=== PATIENT | male | born 1960 | race Caucasian/White ===

== ENCOUNTER → 2018-02-22 09:17 | Outpatient (CLI) | payer OTHER, SELFPAY ==
--- NOTE | 2018-02-22 09:20 | BD_ITS ---
STUDY: DUAL ENERGY X-RAY ABSORPTIOMETRY / DXA REASON FOR EXAM: Male, 57 years old. Long-term steroid use. Renal transplant for 25 years. TECHNIQUE: Bone Mineral Density (BMD) measurements of lumbar spine and bilateral hips were obtained. COMPARISON: None. FINDINGS: Lumbar Spine (L1-L4): g/cm2 (1.025) / T-score (-1.5) / Z-score (1.1) Findings are suggestive of osteopenia with a moderate fracture risk. Left Femur Total: g/cm2 (0.912) / T-score (-1.3) / Z-score (-0.8) Left Femoral Neck: g/cm2 (0.868) / T-score (-1.6) / Z-score (-0.6) Right Femur Total: g/cm2 (0.979) / T-score (-0.8) / Z-score (line is 0.4) Right Femoral Neck: g/cm2 (0.941) / T-score (-1.0) / Z-score (-0.1) BD/Dexa Bone Density Study IMPRESSION: The patient is considered osteopenic as outlined below according to World [employer] Organization (WHO) criteria with a moderate fracture risk. Reference Information: The T-score is the number of standard deviations above or below the standard which is normal for young adults at their peak bone mineral density. The World Health Organization (WHO) interprets the T-scores as follows: Above -1 Normal bone density Between -1 and -2.5 Osteopenia Equal to / or below -2.5 Osteoporosis As a practical clinical guideline, osteopenia may be graded as follows: Mild -1 through -1.5 Moderate -1.6 through -2.0 Severe -2.1 through -2.4 The Z-score is the number of standard deviations above or below age-matched controls. A Z-score of less than -1.5 would be considered abnormal. References: 1. NIH Osteoporosis and Related Bone Diseases http://www.osteo.org 2. International Society for Clinical Densitometry http://www.iscd.org 3. National Osteoporosis Foundation http://www.nof.org Electronically Signed: Gavin Boss DO at 8:57 EDT Tel [phone], Service support ,
== END ==
LOC: OPBD 09:18
PROVIDERS: Family Provider Nurse Practitioner Family; PCP Nurse Practitioner Family; Visit Provider Nurse Practitioner Family
DX: M41.80 Other forms of scoliosis, site unspecified (principal); Z94.0 Kidney transplant status; Z79.52 Long term (current) use of systemic steroids
CPT/HCPCS: 77080

== ENCOUNTER → 2022-02-23 | Outpatient (CLI) | payer OTHER, SELFPAY ==
[2022-02-23 08:25] LABS: Hematocrit 41.8 % (40-54); Hemoglobin 13.8 g/dL (13.0-16.5); Mean Corpuscular Hgb 30.1 pg (27.0-32.0); Mean Corpuscular Volume 91.3 fL (80-94); Mean Platelet Vol. 10.8 fl (6.2-12.0); POSITIVE MORPHOLOGY YES; Platelet Count 197 K/mm3 (150-450); RBC Distribution Width CV 13.2 % (11.6-14.6); RBC Distribution Width SD 44.4 fl (35.1-43.9); Red Blood Count 4.58 M/mm3 (4.6-6.2); White Blood Count 7.7 K/mm3 (4.4-11.0)
[2022-02-23 08:54] LABS: Scan Indicated on CBC? Y/N YES- FLAGS NOTED
[2022-02-23 09:09] LABS: AST(SGOT) 20 U/L (15-37); Alanine Aminotransfer ALT/SGPT 21 U/L (16-61); Albumin, Serum 3.6 g/dL (3.2-5.0); Alkaline Phosphatase 65 U/L (45-117); Anion Gap 6 (5-15); BUN 21 mg/dL (7-18); BUN/Creat Ratio 12.1 RATIO (10-20); Calcium,Total 8.8 mg/dL (8.5-10.1); Chloride 107 mmol/L (98-107); Cholesterol 180 mg/dL (200); Creatinine, Serum 1.73 mg/dL (0.70-1.30); EST Glomerular Filtration Rate 43 mL/min (>60); Est Glom Filt Rate - Afr Amer 51 mL/min (>60); Globulin 3.5 g/dL (2.2-4.2); Glucose 119 mg/dL (74-106); High Density Lipoprotein 69 mg/dL; PSA,Total - Annual Screen 2.51 ng/mL (0.00-4.00); Potassium 4.4 mmol/L (3.5-5.1); Protein, Total 7.1 g/dL (6.4-8.2); Sodium Level 140 mmol/L (136-145); Triglycerides 63 mg/dL; Very Low Density Lipoprotein 13 mg/dL (5-40)
== END | disposition home or self-care (01) ==
PROVIDERS: PCP Nurse Practitioner Family; Referring Provider Nurse Practitioner Family; Visit Provider Nurse Practitioner Family
DX: Z00.00 Encounter for general adult medical examination without abnormal findings (principal); I10 Essential (primary) hypertension; E55.9 Vitamin D deficiency, unspecified; R25.2 Cramp and spasm; Z13.220 Encounter for screening for lipoid disorders
CPT/HCPCS: 36415; 80053; 80061; 82306; 83735; 84153; 85027; G0103

== ENCOUNTER → 2022-03-02 | Outpatient (CLI) | payer OTHER, SELFPAY ==
[2022-03-02 09:02] LABS: Glucose 98 mg/dL (74-106)
== END | disposition home or self-care (01) ==
LOC: LAB 08:13
PROVIDERS: PCP Nurse Practitioner Family; Referring Provider Nurse Practitioner Family; Visit Provider Nurse Practitioner Family
DX: Z13.1 Encounter for screening for diabetes mellitus (principal)
CPT/HCPCS: 36415; 82947

== ENCOUNTER → 2022-08-24 | Outpatient (CLI) | payer OTHER, SELFPAY ==
[2022-08-24 08:52] LABS: Hematocrit 40.7 % (40-54); Hemoglobin 13.8 g/dL (13.0-16.5); Mean Corp Hgb Conc 33.9 g/dL (32-36); Mean Corpuscular Hgb 30.3 pg (27.0-32.0); Mean Corpuscular Volume 89.5 fL (80-94); Platelet Count 246 K/mm3 (150-450); RBC Distribution Width SD 42.6 fl (35.1-43.9); Red Blood Count 4.55 M/mm3 (4.6-6.2); White Blood Count 8.8 K/mm3 (4.4-11.0)
[2022-08-24 09:14] LABS: Albumin, Serum 3.6 g/dL (3.2-5.0); BUN 26 mg/dL (7-18); BUN/Creat Ratio 14.5 RATIO (10-20); Calcium,Total 8.9 mg/dL (8.5-10.1); Chloride 110 mmol/L (98-107); Creatinine, Serum 1.79 mg/dL (0.70-1.30); EST Glomerular Filtration Rate 41 mL/min (>60); Est Glom Filt Rate - Afr Amer 49 mL/min (>60); Glucose 87 mg/dL (74-106); Magnesium 2.2 mg/dL (1.6-2.6); Potassium 4.3 mmol/L (3.5-5.1); Sodium Level 141 mmol/L (136-145)
[2022-08-28 18:50] LABS: Cyclosporine 92 ng/mL (100-400)
== END | disposition home or self-care (01) ==
LOC: LAB 08:20
PROVIDERS: PCP Nurse Practitioner Family
DX: Z94.0 Kidney transplant status (principal)
CPT/HCPCS: 36415; 80069; 80158; 83735; 85027

== ENCOUNTER → 2022-12-09 | Outpatient (CLI) | payer OTHER, SELFPAY ==
[2022-12-09 09:05] LABS: Hematocrit 42.7 % (40-54); Hemoglobin 13.9 g/dL (13.0-16.5); Mean Corp Hgb Conc 32.6 g/dL (32-36); Mean Platelet Vol. 11.1 fl (6.2-12.0); Platelet Count 217 K/mm3 (150-450); RBC Distribution Width CV 13.4 % (11.6-14.6); RBC Distribution Width SD 45.5 fl (35.1-43.9); Red Blood Count 4.64 M/mm3 (4.6-6.2); White Blood Count 8.4 K/mm3 (4.4-11.0)
[2022-12-09 09:33] LABS: ALB/GLOB Ratio 1.1 RATIO (0.9-2.4); AST(SGOT) 19 U/L (15-37); Alanine Aminotransfer ALT/SGPT 16 U/L (16-61); Albumin, Serum 3.8 g/dL (3.2-5.0); Alkaline Phosphatase 72 U/L (45-117); Anion Gap 7 (5-15); BUN 26 mg/dL (7-18); BUN/Creat Ratio 15.4 RATIO (10-20); Calcium,Total 9.1 mg/dL (8.5-10.1); Chloride 109 mmol/L (98-107); Cholesterol 179 mg/dL (200); Creatinine, Serum 1.69 mg/dL (0.70-1.30); EST Glomerular Filtration Rate 44 mL/min (>60); Est Glom Filt Rate - Afr Amer 53 mL/min (>60); Globulin 3.5 g/dL (2.2-4.2); Glucose 99 mg/dL (74-106); High Density Lipoprotein 72 mg/dL; Magnesium 2.1 mg/dL (1.6-2.6); Potassium 4.4 mmol/L (3.5-5.1); Protein, Total 7.3 g/dL (6.4-8.2); Sodium Level 141 mmol/L (136-145); Triglycerides 66 mg/dL; Very Low Density Lipoprotein 13 mg/dL (5-40)
[2022-12-13 12:57] LABS: Cyclosporine 66 ng/mL (100-400)
== END | disposition home or self-care (01) ==
LOC: LAB 08:11
PROVIDERS: PCP Nurse Practitioner Family
DX: Z00.00 Encounter for general adult medical examination without abnormal findings (principal); Z94.0 Kidney transplant status; E55.9 Vitamin D deficiency, unspecified
CPT/HCPCS: 36415; 80053; 80061; 80158; 82306; 83735; 84100; 85027

== ENCOUNTER → 2023-12-21 | Outpatient (CLI) | payer OTHER, SELFPAY ==
--- NOTE | 2023-12-21 13:48 | BD_ITS ---
STUDY: DUAL ENERGY X-RAY ABSORPTIOMETRY / DXA REASON FOR EXAM: Male, 63 years old. M85.89 TECHNIQUE: Bone Mineral Density (BMD) measurements of lumbar spine and bilateral hips were obtained. COMPARISON: Comparison is made with prior study dated February 22, 2018. FINDINGS: Lumbar Spine (L1-L4): g/cm2 (0.919) / T-score (-1.6) / Z-score (-0.8) Findings are suggestive of osteopenia with a moderate fracture risk. Left Femur Total: g/cm2 (0.864) / T-score (-1.1) / Z-score (-0.6) Left Femoral Neck: g/cm2 (0.703) / T-score (-1.7) / Z-score (-0.6) Right Femur Total: g/cm2 (0.839) / T-score (-1.3) / Z-score (-0.8) Right Femoral Neck: g/cm2 (0.839) / T-score (-0.7) / Z-score (0.4) The T-Scores on the most recent prior examination were: Lumbar Spine (L1-L4): There has been worsening of bone density since the previous examination. Left Femur Total: which represents an improvement of 1.8%. Right Femur Total: which represents a worsening of 8.2%. BD/Dexa Bone Density Study IMPRESSION: The patient is considered osteopenic as outlined below according to [employer] Organization (WHO) criteria with a moderate fracture risk. There has been worsening of bone density since the previous examination. Reference Information: The T-score is the number of standard deviations above or below the standard which is normal for young adults at their peak bone mineral density. The World Health Organization (WHO) interprets the T-scores as follows: Above -1 Normal bone density Between -1 and -2.5 Osteopenia Equal to / or below -2.5 Osteoporosis As a practical clinical guideline, osteopenia may be graded as follows: Mild -1 through -1.5 Moderate -1.6 through -2.0 Severe -2.1 through -2.4 The Z-score is the number of standard deviations above or below age-matched controls. A Z-score of less than -1.5 would be considered abnormal. References: 1. NIH Osteoporosis and Related Bone Diseases www osteo.org 2. International Society for Clinical Densitometry www iscd.org 3. National Osteoporosis Foundation www nof.org Electronically Signed: Mo Marroquin MD at 8:46 EST ,
--- OUTSIDE RECORDS SUMMARY | 2023-12-21 23:13 | XMS RPT_ITS | CCD ---
Author Name Unknown Address [id number] [place] [address] Organization [facility] Care Team Providers Care Beet End Supervisor Name Role Phone Emil, Dayami K Unavailable Unavailable Emil, Dayami K Unavailable Unavailable Emil, Dayami K Unavailable Unavailable Emil, Dayami K Unavailable Unavailable Emil, Dayami K Unavailable Unavailable Emil, Dayami K Unavailable Unavailable Emil, Dayami K Unavailable Unavailable Emil, Dayami K Unavailable Unavailable Emil, Dayami K Unavailable Unavailable Emil, Dayami K Unavailable Unavailable Emil, Dayami K Unavailable Unavailable Emil, Dayami K Unavailable Unavailable Padiyar, Marlyn Unavailable Unavailable Unknown, Referring Provider Unavailable Unav ailable Unavailable Unavailable Unavailable Padiyar, Marlyn Unavailable Unavailable Unavailable Unavailable Unavailable Unavailable Unavailable Unavailable MD [facility] Attending UnavailDeepthi Barraza Primary Care Unavailable DAYAMI CARRERA Primary Care Unavailable DAYAMI CARRERA Admitting Unavailable ORIANA SARGENT Consulting Unavailable DAYAMI CARRERA Attending Unavailable PROVIDER, UNKNOWN Consulting Unavailable DAYAMI CARRERA Attending Unavailable DAYAMI CARRERA Primary Care Unavailable EMIL, DAYAMI Admitting Unavailable ORIANA SARGENT Consulting Unavailable PROVIDER, UNKNOWN Consulting Unavailable Medications Completed/Discontinued Medications Medication Drug Class(es) Dates Sig (Normalized) Sig (Original) atorvastatin 10 mg oral tablet (14 sources) HMG-CoA Reductase Inhibitor Start: 12-23-2015 take 0.5 tablet by mouth at bedtime Atorvastatin Calcium 10 MG Oral Tablet Take 1/2 tablet at bedtime Quantity: 45 Refills: 3 Ordered: 17-Aug-2022 Maik Douglas MD Start : 23-Dec-2015 Active cholecalciferol 0.125 mg oral tablet (2 sources) Vitamin D Start: 08-17-2022 take 1 tablet by mouth once daily Vitamin D-3 125 MCG (5000 UT) Oral Tablet Take 1 tablet daily Quantity: 90 Refills: 3 Ordered: 17-Aug-2022 Maik Douglas MD Start : 17-Aug-2022 Active cycloSPORINE, modified 25 mg oral capsule (14 sources) Calcineurin Inhibitor Immunosuppressant Start: 01-06-2018 take 3 capsules by mouth twice daily Neoral 25 MG Oral Capsule TAKE 3 CAPSULES BY MOUTH TWICE DAILY Quantity: 540 Refills: 3 Ordered: 23-Jun-2022 Enrique Orozco MD Start : 06-Jan-2018 Active 24 hr dilTIAZem hydrochloride 300 mg extended release oral capsule (14 sources) Calcium Channel Alice Start: 12-18-2015 take 1 capsule by mouth once daily dilTIAZem HCl ER Coated Beads 300 MG Oral Capsule Extended Release 24 Hour TAKE 1 CAPSULE Daily Quantity: 90 Refills: 3 Ordered: 17-Aug-2022 Enrique Orozco MD Start : 18-Dec-2015 Active doxazosin 4 mg oral tablet (14 sources) alpha-Adrenergic Alice Start: 08-12-2015 take 1 tablet by mouth once daily at bedtime Doxazosin Mesylate 4 MG Oral Tablet TAKE 1 TABLET NIGHTLY AT BEDTIME Quantity: 90 Refills: 3 Ordered: 17-Aug-2022 Enrique Orozco MD Start : 12-Aug-2015 Active ergocalciferol 1.25 mg oral capsule (12 sources) Provitamin D2 Compound Start: 01-26-2018 take 1 capsule by mouth every week Vitamin D (Ergocalciferol) 1.25 MG (44421 UT) Oral Capsule TAKE 1 CAPSULE WEEKLY. Quantity: 12 Refills: 3 Ordered: 14-Sep-2021 Enrique Orozco MD Start : 26-Jan-2018 Active mycophenolate mofetil 250 mg oral capsule (14 sources) Start: 12-18-2015 take 4 capsules by mouth twice daily Mycophenolate Mofetil 250 MG Oral Capsule TAKE 4 CAPSULES BY MOUTH TWICE DAILY Quantity: 720 Refills: 3 Ordered: 14-Sep-2021 Enrique Orozco MD Start : 18-Dec-2015 Active predniSONE 5 mg oral tablet (14 sources) Start: 12-23-2015 take 1 tablet by mouth once daily predniSONE 5 MG Oral Tablet TAKE 1 TABLET BY MOUTH EVERY DAY Quantity: 90 Refills: 3 Ordered: 17-Aug-2022 Enrique Orozco MD Start : 23-Dec-2015 Active sildenafil 50 mg oral tablet (14 sources) Phosphodiesterase 5 Inhibitor Start: 04-09-2019 take 1 tablet by mouth once daily Sildenafil Citrate 50 MG Oral Tablet TAKE 1 TABLET DAILY 1 HOUR BEFORE NEEDED Quantity: 30 Refills: 3 Ordered: 17-Aug-2022 Enrique Orozco MD Start : 09-Apr-2019 Active Problems Active Problems Problem Classification Problem Date Documented Da te Episodic/Chronic Chronic kidney disease (8 sources) History of renal transplant; Translations: [Kidney transplant status] Onset: 08-17-2022 Chronic Disorders of lipid metabolism (14 sources) Hyperlipidemia; Translations: [Other and unspecified hyperlipidemia] Chronic Essential hypertension (16 sources) Hypertensive disorder; Translations: [Unspecified essential hypertension] Onset: 08-17-2022 Chronic Past or Other Problems Problem Classification Problem Date Documented Da te Episodic/Chronic Unclassified (3 sources) Patient encounter status; Translations: [Screening for blood or protein in urine] NEGATED: Highlighted row has not occurred!Residual codes; unclassified (12 sources) Disease Episodic Results Test Name Value Interpretation Reference Range Facil ity Vital Signs Date Time Vital Sign Value Performing Clinician Jonel hyman 08-17-2022 08:47-0400 Body mass index (BMI) [Ratio] 25.46 kg/m2 Oziel Burt MD Work Phone: SO-Gswcssfezq-Dhx her Work Phone: 08-17-2022 08:47-0400 Body surface area Derived from formula 1.9 m2 Oziel Burt MD Work Phone: II-Gotoqojjlx-Vqo her Work Phone: 08-17-2022 08:47-0400 Body temperature 97.9 [degF] Oziel Burt MD Work Phone: BJ-Vwnymeugni-Ylf her Work Phone: 08-17-2022 08:47-0400 Body weight 75.95 kg Oziel Burt MD Work Phone: RD-Qhuqnukkhs-Uyh her Work Phone: 08-17-2022 08:47-0400 Diastolic blood pressure 71 mm[Hg] Oziel Burt MD Work Phone: OO-Hvesvcwlji-Bli her Work Phone: 08-17-2022 08:47-0400 Heart rate 83 /min Oziel Burt MD Work Phone: HU-Lvyrjegxlp-Jfm her Work Phone: 08-17-2022 08:47-0400 Respiratory rate 18 /min Oziel Burt MD Work Phone: PF-Ptefarnmaa-Erk her Work Phone: 08-17-2022 08:47-0400 SaO2% (BldA) [Mass fraction] 98 % Oziel Burt MD Work Phone: WJ-Rfeeewvjiw-Phi her Work Phone: 08-17-2022 08:47-0400 Systolic blood pressure 120 mm[Hg] Oziel Burt MD Work Phone: ND-Jiiudgxgsi-Ltq her Work Phone: 08-17-2022 08:47-0400 1 1 Oziel Burt MD Work Phone: IE-Xzpeymtihq-Zcn her Work Phone: Encounters Encounter Date Encounter Type Care Provider Facility Start: 11-21-2023 End: 11-21-2023 ambulatory [facility] Start: 11-21-2023 Encounter for genera l adult medical examination without abnormal findings [facility] Start: 11-18-2023 ambulatory [facility] Start: 08-17-2022 Current tobacco non-user cad cap copd pv dm Oziel Burt MD Work Phone: UU-Seivlfgbkx-Iojyi r Work Phone: Start: 08-17-2022 ambulatory MD ENRIQUE OROZCO Facility:[facility] Start: 02-04-2022 AUDIT Enrique lino MD Work Phone: WC-Wzyowvdznu-Dphlj r Work Phone: Start: 09-14-2021 AUDIT Enrique lino MD Work Phone: HF-Kpacyxzsyl-Unvef r Work Phone: Start: 08-21-2021 Patient encounter procedure Maik Douglas MD Work Phone: ZS-Kyxwagjmmr-Hptsg r Work Phone: Start: 07-23-2021 AUDIT Enrique lino MD Work Phone: ED-Dgagigwpqr-Riank r Work Phone: Start: 07-21-2021 AUDIT Mike Elder MD Work Phone: MG-Family [facility] [address] Work Phone: Start: 04-07-2021 AUDIT Marlyn Koenig MD Work Phone: ZU-Sjrahgygbu-Adacv r Work Phone: Start: 03-26-2021 Patient encounter procedure Enrique Orozco MD Work Phone: CJ-Lelcfshpif-Ojave r Work Phone: Start: 03-26-2021 Phys/qhp telephone evaluation 11-20 min Enrique Orozco MD Work Phone: OG-Bjcyfudjgl-Ffrnw r Work Phone: Start: 04-15-2020 Patient encounter procedure Marlyn Koenig UR-Dskmtdgozf-Lafem r Work Phone: Start: 04-09-2019 Patient encounter procedure Marlyn Padiyar MZ-Daksfwzzff-Wktii r Work Phone: Start: 02-06-2019 Patient encounter procedure Marlyn Padiyar GR-Yrsyhhwumj-Dauwl r Work Phone: Start: 08-08-2018 Patient encounter procedure Marlyn Padiyar TZ-Xuhpcmiisu-Uxeju r Work Phone: Start: 04-10-2018 Patient encounter procedure Marlyn Padiyar UB-Mpqpqqrgpv-Twpth r Work Phone: Start: 02-11-2018 End: 02-11-2018 Ambulatory Dayami Carrera Facility: Start: 02-07-2018 End: 02-08-2018 Ambulatory Dayami Ashley Carrera Facility: Start: 01-25-2018 End: 01-26-2018 Ambulatory [facility] Emil Facility: Start: 01-24-2018 End: 01-25-2018 Ambulatory [facility] Emil Facility: Procedures Date Procedure Procedure Detail Performing Clinician Start: 04-09-2020 CBC W Auto Different ial panel - Blood Marlyn Padiyar Start: 04-09-2020 Drug assay cyclosporine Marlyn Padiyar Start: 04-09-2020 Renal function panel Ap arnloren Koenig History of Renal Transplant Marlyn Padiyar Plan of Treatment Date Care Activity Detail Author Start: 08-06-2022 EMELIA, Provider: Enrique Orozco, Status: Pen, Time: 8:20 AM [id number], Provider: Enrique Orozco, Status: Pen, Time: 8:20 AM AS-Zjxdfrxdww-Vinmph Work Phone: Start: 08-21-2021 EMELIA, Provider: Maik Douglas, Status: Pen, Time: 8:00 AM KIDFUVMED, Provider: Maik Douglas, Status: Pen, Time: 8:00 AM MG-Family [facility] [address] Work Phone: Immunizations Immunization Date Immunization Notes Care Provider Dale chavira 07-10-2021 Pfizer-BioNTech COVID-19 Vacc 30 MCG/0.3ML Intramuscular Suspension Maik Douglas MD Work Phone: LE-Gtxkvksfvt-Ziep er Work Phone: 01-09-2021 Pfizer-BioNTech COVID-19 Vacc 30 MCG/0.3ML Intramuscular Suspension Enrique Orozco MD Work Phone: EW-Vuphaenbov-Dyzn er Work Phone: 12-19-2020 Pfizer-BioNTech COVID-19 Vacc 30 MCG/0.3ML Intramuscular Suspension Enrique Orozco MD Work Phone: SI-Tzflgqisgk-Crsg er Work Phone: Payers Date Payer Category Payer Unknown 1960 Unknown [id number] 1960 Unknown [id number] 1960 Unknown [id number] Unknown [id number] Social History Date Type Detail Facility Assertion Unknown if ever smoked [facility] Work Phone: Functional Status Date Assessment Result Facility NEGATED: Highlighted row Functional performance Functional status health issues are not documented Disease KJ-Mebujleipu-Hgpek r Work Phone: Mental Status Date Assessment Result Facility NEGATED: Highlighted row Cognitive function [Interpretation] Cognitive status health issues are not documented Disease QW-Rtipkmupmr-Idcku r Work Phone: History of Present illness Narrative 07-14-1994 Note Date & Type Note Facility 07-14-1994 History of Present illness Narrative Ethnicity: /: Not Specified/ Unknown.Primary Cause of Organ Disease: Other: Chronic Glomerulonephritis.Donor/Transplan t Type: A living donor renal transplant on: 07/14/1994.Rejections: No episodes of rejection.Infection: No episodes of infection.Malignancies After Transplant: No episodes of post transplant malignancy.Functional StatusKarnofsky Performance Status Scale Definitions Rating (%) Criteria Able to carry on normal activity and to work; no special care needed, 80 - Normal activity with effort; some signs and symptoms of disease.Subjective: Mr. KATY BAUTISTA is a 60 year old male who presents to the clinic with a history of chronic glomerulonephritis. He received a living donor kidney transplant on 07/14/94.Today, the patient presents to his telephone visit.The patient is doing well. No hospitalizations or ER visits over the past year. COVID vaccine - completed. Blood pressure at home is at goal. He has an issue with medication cost. He is applying for [employer] patient assistance program.Otherwise, the patient denies any headaches, focal weakness or tingling, sob, chest pain, cough, fever, chills, nausea, vomiting, diarrhea, constipation, difficulty with bladder emptying, dysuria, hematuria.Patient denies difficulties obtaining medications.Patient denies active tobacco use.Impression: Allograft Function good (Creatinine is 1.53 as of 02/18/21), eGFR: 46.Immunosuppression Levels: Low (Cyclosporine level is 60 ng/ml as of 02/18/21).Proteinuria: Not clinically significantBlood Pressure Control: AdequateBlood Count: normal.Plan: No immunosuppression change.Return to Clinic: In 1 yearLab Frequency: Every three monthsComments:PLAN:- Will ask our coordinator to follow up about the medication cost- Continue labs every 3 months- RTC in 1 year. IQ-Zqxabydssa-Zxvqsg Work Phone: History of Present illness Narrative 07-14-1994 Note Date & Type Note Facility 07-14-1994 History of Present illness Narrative Ethnicity: /: Not Specified/ Unknown.Primary Cause of Organ Disease: Other: Chronic Glomerulonephritis.Donor/Transplan t Type: A living donor renal transplant on: 07/14/1994.Rejections: No episodes of rejection.Infection: No episodes of infection.Malignancies After Transplant: No episodes of post transplant malignancy.Functional StatusKarnofsky Performance Status Scale Definitions Rating (%) Criteria Able to carry on normal activity and to work; no special care needed, 80 - Normal activity with effort; some signs and symptoms of disease.Subjective: Mr. KATY BAUTISTA is a 60 year old male who presents to the clinic with a history of chronic glomerulonephritis. He received a living donor kidney transplant on 07/14/94.Today, the patient presents to his telephone visit.The patient is doing well. No hospitalizations or ER visits over the past year. COVID vaccine - completed. Blood pressure at home is at goal. He has an issue with medication cost. He is applying for [employer] patient assistance program.Otherwise, the patient denies any headaches, focal weakness or tingling, sob, chest pain, cough, fever, chills, nausea, vomiting, diarrhea, constipation, difficulty with bladder emptying, dysuria, hematuria.Patient denies difficulties obtaining medications.Patient denies active tobacco use.Impression: Allograft Function good (Creatinine is 1.53 as of 02/18/21), eGFR: 46.Immunosuppression Levels: Low (Cyclosporine level is 60 ng/ml as of 02/18/21).Proteinuria: Not clinically significantBlood Pressure Control: AdequateBlood Count: normal.Plan: No immunosuppression change.Return to Clinic: In 1 yearLab Frequency: Every three monthsComments:PLAN:- Will ask our coordinator to follow up about the medication cost- Continue labs every 3 months- RTC in 1 year. XD-Hiwgfpucjl-Rleddj Work Phone: History of Present illness Narrative 07-14-1994 Note Date & Type Note Facility 07-14-1994 History of Present illness Narrative Ethnicity: /: Not Specified/ Unknown.Primary Cause of Organ Disease: Other: Chronic Glomerulonephritis.Donor/Transplan t Type: A living donor renal transplant on: 07/14/1994.Rejections: No episodes of rejection.Infection: No episodes of infection.Malignancies After Transplant: No episodes of post transplant malignancy.Subjective:Mr. KATY BAUTISTA is a 61 year old male who presents to the clinic with a history of chronic glomerulonephritis. He received a living donor kidney transplant on 07/14/94.Today, the patient presents for a post kidney transplant follow up visit.The patient reports that, overall, he is doing well with no new complaints.He reports developing red patches on his skin when brushing up on surfaces while on prednisone. The patient reports getting labs only once a year due to insurance reasons.Today the patient denies any headaches, focal weakness or tingling, sob, chest pain, cough, fever, chills, nausea, vomiting, diarrhea, constipation, difficulty with bladder emptying, dysuria, hematuria.Patient denies difficulties obtaining medications.Patient denies active tobacco use.Impression: Allograft Function stable though impaired (Creatinine 1.53 as of 02/18/2021), eGFR: 46.Immunosuppression Levels: Adequate (Cyclosporine level 60 as of 02/18/2021).Proteinuria: Not clinically significantBlood Pressure Control: AdequateBlood Count: normal.Plan: No immunosuppression change.Return to Clinic: In 1 yearComments:- Labs once per year (due to insurance reasons). [employer] Work Phone: History of Present illness Narrative 07-14-1994 Note Date & Type Note Facility 07-14-1994 History of Present illness Narrative Ethnicity: /: Not Specified/ Unknown.Primary Cause of Organ Disease: Other: Chronic Glomerulonephritis.Donor/Transplan t Type: A living donor renal transplant on: 07/14/1994.Rejections: No episodes of rejection.Infection: No episodes of infection.Malignancies After Transplant: No episodes of post transplant malignancy.Subjective:Mr. KATY BAUTISTA is a 61 year old male who presents to the clinic with a history of chronic glomerulonephritis. He received a living donor kidney transplant on 07/14/94.Today, the patient presents for a post kidney transplant follow up visit.The patient reports that, overall, he is doing well with no new complaints.He reports developing red patches on his skin when brushing up on surfaces while on prednisone. The patient reports getting labs only once a year due to insurance reasons.Today the patient denies any headaches, focal weakness or tingling, sob, chest pain, cough, fever, chills, nausea, vomiting, diarrhea, constipation, difficulty with bladder emptying, dysuria, hematuria.Patient denies difficulties obtaining medications.Patient denies active tobacco use.Impression: Allograft Function stable though impaired (Creatinine 1.53 as of 02/18/2021), eGFR: 46.Immunosuppression Levels: Adequate (Cyclosporine level 60 as of 02/18/2021).Proteinuria: Not clinically significantBlood Pressure Control: AdequateBlood Count: normal.Plan: No immunosuppression change.Return to Clinic: In 1 yearComments:- Labs once per year (due to insurance reasons). NA-Jpplstntlt-Ukwvba Work Phone: History of Present illness Narrative 07-14-1994 Note Date & Type Note Facility 07-14-1994 History of Present illness Narrative Ethnicity: /: Not Specified/ Unknown.Primary Cause of Organ Disease: Other: Chronic Glomerulonephritis.Donor/Transplan t Type: A living donor renal transplant on: 07/14/1994.Rejections: No episodes of rejection.Infection: No episodes of infection.Malignancies After Transplant: No episodes of post transplant malignancy.Subjective:Mr. KATY BAUTISTA is a 62 year old male who presents to the clinic with a history of chronic glomerulonephritis. He received a living donor kidney transplant on 07/14/94.Today, the patient presents for a post kidney transplant follow up visit.The patient reports that, overall, he is doing well with no new complaints.BP controlled at homeToday the patient denies any headaches, focal weakness or tingling, sob, chest pain, cough, fever, chills, nausea, vomiting, diarrhea, constipation, difficulty with bladder emptying, dysuria, hematuria.Patient denies difficulties obtaining medications.Patient denies active tobacco use.Impression: Allograft Function stable though impaired, eGFR: 44.Immunosuppression Levels: Low.Proteinuria: Not clinically significantBlood Pressure Control: AdequateBlood Count: normal.Plan: No immunosuppression change.Return to Clinic: In 1 year VJ-Tmgbkaaszv-Zerbak Work Phone: History of Present illness Narrative 07-14-1994 Note Date & Type Note Facility 07-14-1994 History of Present illness Narrative Ethnicity: /: Not Specified/ Unknown.Primary Cause of Organ Disease: Other: Chronic Glomerulonephritis.Donor/Transplan t Type: A living donor renal transplant on: 07/14/1994.Rejections: No episodes of rejection.Infection: No episodes of infection.Malignancies After Transplant: No episodes of post transplant malignancy.Subjective:Mr. KATY BAUTISTA is a 62 year old male who presents to the clinic with a history of chronic glomerulonephritis. He received a living donor kidney transplant on 07/14/94.Today, the patient presents for a post kidney transplant follow up visit.The patient reports that, overall, he is doing well with no new complaints.BP controlled at home with current medications.No recent UTIsToday the patient denies any headaches, focal weakness or tingling, sob, chest pain, cough, fever, chills, nausea, vomiting, diarrhea, constipation, difficulty with bladder emptying, dysuria, hematuria.Patient denies difficulties obtaining medications.Patient denies active tobacco use.Impression: Allograft Function stable though impaired, eGFR: 44.Immunosuppression Levels: Low.Proteinuria: Not clinically significantBlood Pressure Control: AdequateBlood Count: normal.Plan: No immunosuppression change.Return to Clinic: In 1 year ZI-Equdkpykyp-WGU [address] Work Phone: Summary Purpose Family History No Family History Records FoundNo Family History Records FoundNo Family History Records FoundNo Family History Records FoundNo Family History Records FoundNo Family History Records FoundNo Family History Records Found Advance Directives No Advanced Directives Records FoundNo Advanced Directives Records FoundNo Advanced Directives Records FoundNo Advanced Directives Records FoundNo Advanced Directives Records FoundNo Advanced Directives Records FoundNo Advanced Directives Records Found Chief Complaint * A telephone visit (audio only) between the patient (at the originating site) and the provider (at the distant site) was utilized to provide this telehealth service. * Verbal consent was requested and obtained from [facility] on this date, 03/26/2021 09:00 AM , fora telehealth visit. * Post Kidney Transplant Follow Up * A telephone visit (audio only) between the patient (at the originating site) and the provider (at the distant site) was utilized to provide this telehealth service. * Verbal consent was requested and obtained from [facility] on this date, 03/26/2021 09:00 AM , fora telehealth visit. 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 * f/u in 1 yr Post Kidney Transplant Follow Up Additional Source Comments (unrecognized sect ion and content) No Status Records FoundNo Status Records FoundNo Status Records FoundNo Status Records FoundNo Status Records FoundNo Status Records FoundNo Status Records Found INFORMATION SOURCE (unrecogn ized section and content) DATE CREATED AUTHOR AUTHOR'S ORGANIZ ATION 04/06/2019 [facility] DATE CREATED AUTHOR AUTHOR'S ORGANIZ ATION 12/22/2020 [facility] DATE CREATED AUTHOR AUTHOR'S ORGANIZ ATION 02/24/2021 [facility] DATE CREATED AUTHOR AUTHOR'S ORGANIZ ATION 08/24/2022 [employer] DATE CREATED AUTHOR AUTHOR'S ORGANIZ ATION 08/26/2022 [facility] DATE CREATED AUTHOR AUTHOR'S ORGANIZ ATION 11/21/2023 [facility] FOR RECORDS PERTAINING TO PATIENTS WHO ARE OR HAVE BEEN ENROLLED IN A CHEMICAL DEPENDENCY/SUBSTANCEABUSE PROGRAM, SOME INFORMATION MAY BE OMITTED. This clinical summary was aggregated from multiple sources. Caution should be exercised in using it in the provision of clinical care. This summary normalizes information from multiple sources, and as a consequence, information in this document may materially change the coding, format and clinical context of patient data. In addition, data may be omitted in some cases. CLINICAL DECISIONS SHOULD BE BASED ON THE PRIMARY CLINICAL RECORDS. [facility] [employer] provides no warranty or guarantee of the accuracy or completeness of information in this document.
== END | disposition home or self-care (01) ==
PROVIDERS: PCP Nurse Practitioner Family; Referring Provider Nurse Practitioner Family; Visit Provider Nurse Practitioner Family
DX: M85.89 Other specified disorders of bone density and structure, multiple sites (principal)
CPT/HCPCS: 77080

== ENCOUNTER → 2024-02-15 | Outpatient (CLI) | payer OTHER, SELFPAY ==
[2024-02-15 09:20] LABS: Hematocrit 41.4 % (40-54); Hemoglobin 13.2 g/dL (13.0-16.5); Mean Corp Hgb Conc 31.9 g/dL (32-36); Mean Corpuscular Hgb 28.8 pg (27.0-32.0); Mean Corpuscular Volume 90.4 fL (80-94); Mean Platelet Vol. 11.7 fl (6.2-12.0); Platelet Count 208 K/mm3 (150-450); RBC Distribution Width CV 13.9 % (11.6-14.6); RBC Distribution Width SD 46.3 fl (35.1-43.9); Red Blood Count 4.58 M/mm3 (4.6-6.2); White Blood Count 8.4 K/mm3 (4.4-11.0)
[2024-02-15 09:47] LABS: Vitamin D,25 Hydroxy 46.5 ng/mL
[2024-02-15 10:10] LABS: AST(SGOT) 15 U/L (15-37); Alanine Aminotransfer ALT/SGPT 13 U/L (16-61); Albumin, Serum 3.5 g/dL (3.2-5.0); Alkaline Phosphatase 67 U/L (45-117); Anion Gap 5 (5-15); BUN 19 mg/dL (7-18); Calcium,Total 8.9 mg/dL (8.5-10.1); Chloride 110 mmol/L (98-107); Cholesterol 214 mg/dL (200); Creatinine, Serum 1.58 mg/dL (0.70-1.30); EST Glomerular Filtration Rate 47 mL/min (>60); Est Glom Filt Rate - Afr Amer 57 mL/min (>60); Globulin 3.5 g/dL (2.2-4.2); Glucose 85 mg/dL (74-106); High Density Lipoprotein 65 mg/dL; PSA,Total - Annual Screen 2.45 ng/mL (0.00-4.00); Potassium 4.4 mmol/L (3.5-5.1); Sodium Level 139 mmol/L (136-145); Triglycerides 71 mg/dL; Very Low Density Lipoprotein 14 mg/dL (5-40)
== END | disposition home or self-care (01) ==
LOC: LAB 08:17
PROVIDERS: PCP Nurse Practitioner Family; Referring Provider Nurse Practitioner Family; Visit Provider Nurse Practitioner Family
DX: Z00.00 Encounter for general adult medical examination without abnormal findings (principal); E55.9 Vitamin D deficiency, unspecified; Z13.220 Encounter for screening for lipoid disorders; Z79.52 Long term (current) use of systemic steroids; I10 Essential (primary) hypertension; Z94.0 Kidney transplant status; Z12.5 Encounter for screening for malignant neoplasm of prostate; E66.3 Overweight; Z68.25 Body mass index [BMI] 25.0-25.9, adult
CPT/HCPCS: 36415; 80053; 80061; 82306; 84153; 85027; G0103

== ENCOUNTER → 2024-11-19 | Outpatient (CLI) | payer OTHER, SELFPAY ==
[2024-11-19 08:41] LABS: Hemoglobin 13.2 g/dL (13.0-16.5); Mean Corp Hgb Conc 32.2 g/dL (32-36); Mean Corpuscular Hgb 29.3 pg (27.0-32.0); Mean Corpuscular Volume 91.1 fL (80-94); Mean Platelet Vol. 11.6 fl (6.2-12.0); Platelet Count 204 K/mm3 (150-450); RBC Distribution Width CV 12.9 % (11.6-14.6); RBC Distribution Width SD 43.2 fl (35.1-43.9); White Blood Count 7.7 K/mm3 (4.4-11.0)
[2024-11-19 09:05] LABS: PTHIN 83.5 pg/mL (18.4-80.1)
[2024-11-19 09:09] LABS: Vitamin D,25 Hydroxy 33.6 ng/mL
[2024-11-19 09:16] LABS: Albumin, Serum 3.5 g/dL (3.2-5.0); BUN 22 mg/dL (7-18); Calcium,Total 9.1 mg/dL (8.5-10.1); Chloride 109 mmol/L (98-107); Creatinine, Serum 1.84 mg/dL (0.70-1.30); EST Glomerular Filtration Rate 39 mL/min (>60); Est Glom Filt Rate - Afr Amer 48 mL/min (>60); Glucose 97 mg/dL (74-106); Phosphorus 2.7 mg/dL (2.5-4.9); Potassium 4.2 mmol/L (3.5-5.1); Sodium Level 140 mmol/L (136-145)
[2024-11-21 15:07] LABS: Cyclosporine 73 ng/mL (100-400)
== END | disposition home or self-care (01) ==
PROVIDERS: PCP Nurse Practitioner Family
DX: Z79.4 Long term (current) use of insulin (principal)
CPT/HCPCS: 36415; 80069; 80158; 82306; 83970; 85027

== ENCOUNTER → 2025-01-04 | Outpatient (CLI) | payer OTHER, SELFPAY ==
[2025-01-04 08:37] LABS: Hematocrit 41.6 % (40-54); Hemoglobin 13.8 g/dL (13.0-16.5); Mean Corp Hgb Conc 33.2 g/dL (32-36); Mean Corpuscular Hgb 30.4 pg (27.0-32.0); Mean Corpuscular Volume 91.6 fL (80-94); Mean Platelet Vol. 11.3 fl (6.2-12.0); Platelet Count 203 K/mm3 (150-450); RBC Distribution Width CV 13.2 % (11.6-14.6); Red Blood Count 4.54 M/mm3 (4.6-6.2); White Blood Count 8.9 K/mm3 (4.4-11.0)
[2025-01-04 10:06] LABS: Albumin, Serum 4.2 g/dL (3.4-4.8); Anion Gap 12 (5-15); BUN 17 mg/dL (4-19); BUN/Creat Ratio 10.3 RATIO (10-20); Calcium,Total 9.2 mg/dL (7.6-11.0); Carbon Dioxide 22.3 mmol/L (21.0-32.0); Chloride 105 mmol/L (98-108); Creatinine, Serum 1.68 mg/dL (0.70-1.20); EST Glomerular Filtration Rate 45 (>60); Glucose 96 mg/dL (70-99); Phosphorus 3.1 mg/dL (2.7-4.5); Potassium 4.3 mmol/L (3.3-5.1); Sodium Level 139 mmol/L (133-145); Vitamin D,25 Hydroxy 26.8 ng/mL (30-100)
[2025-01-04 10:27] LABS: PTHIN 56 pg/mL (11-61)
[2025-01-04 19:13] LABS: Cholesterol 186 mg/dL (<=200); High Density Lipoprotein 71 mg/dL; Low Density Lipoprotein Calc. 98 mg/dL; Triglycerides 83 mg/dL; Very Low Density Lipoprotein 17 mg/dL (5-40); cholesterol:hdl ratio screen 2.62
[2025-01-08 19:07] LABS: Cyclosporine 82 ng/mL (100-400)
== END | disposition home or self-care (01) ==
LOC: LAB 08:09
PROVIDERS: PCP Nurse Practitioner Family; Referring Provider Nurse Practitioner Family; Visit Provider Nurse Practitioner Family
DX: Z00.00 Encounter for general adult medical examination without abnormal findings (principal); E78.5 Hyperlipidemia, unspecified; Z12.5 Encounter for screening for malignant neoplasm of prostate; Z94.0 Kidney transplant status
CPT/HCPCS: 36415; 80061; 80069; 80158; 82306; 83970; 84156; 85027